=== PATIENT | male | born 1955 | race Caucasian/White ===

== ENCOUNTER 2021-05-02 07:47 | Outpatient (CLI) | payer MEDICARE, SELFPAY ==
[2021-05-02 07:56] VITALS: BMI 30.7
--- NOTE | 2021-05-02 08:11 | ECG_ITS ---
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 The perfusion scan will be documented separately. DATA: Baseline heart rate was 87 beats per minute. Baseline blood pressure was 127/80 millimeters of mercury. Target heart rate was 155. Maximum heart rate achieved was 111. which was 71 % of the predicted target heart rate. Maximum blood pressure was millimeters of mercury. The reason for ending the test was completion of the protocol. The patient did not experience any symptoms. ELECTROCARDIOGRAM: BASELINE: Sinus rhythm. Normal axis. Otherwise, no ST-T changes suggestive of ischemia noted. No arrhythmia noted. EXERCISE: After Lexiscan injection, no ST-T changes suggestive of ischemic noted. No arrhythmia noted. CONCLUSION: Please note due to baseline abnormality of the EKG specificity and sensitivity of the EKG portion of LexiScan MIBI stress test will be low 1. EKG not suggestive of ischemia 2. Lexiscan injection unremarkable. 3. Perfusion scan will be documented separately. Electronically Signed On 05-05-2021 20:53:18 CDT by CHARLENE BLANTON [id number]
--- NOTE | 2021-05-02 08:11 | NMCV_ITS ---
NM miguel angel perf SPECT r/s* [id number] Cheo Flores Age: 66 Gender: M : 1955 Exam Date: 05/02/2021 09:24 Ordering Phys: Paddy Ham NP Technologist: ROSA Collier Exam Location: [facility] Indications: ATYPICAL CHEST PAIN STRESS TEST Please see separate stress test report in [facility] for full findings IMAGE PROTOCOL Rest/Stress 1 Lexiscan Day Radiopharmaceutical Dose (mCi) Administration Site Administered by Rest: Tc-99m 11.0 IV ROSA Andres Sestamibi Stress:Tc-99m 32.4 IV ROSA Andres Sestamibi Rest: 02-May-2021 60 Discovery 630 Stress: 02-May-2021 30 Discovery 630 0.4mg Lexiscan. Images obtained in supine and prone position. SPECT RESULTS Technical Quality: Excellent Raw Data Analysis: Normal Image Corrections: No attenuation or motion correction applied Summed Stress Score: 7 Summed Rest Score: 0 Summed Difference Score: 7 PERFUSION FINDINGS Medium-sized area of moderate reversibility noted in basal to distal anteroseptal suggestive of possible lesion in the LAD. Medium-sized area of moderate reversibility noted in basal to distal inferoseptal wall suggestive of possible lesion in the RCA category. FUNCTIONAL RESULTS (calculated via Gated SPECT) Stress Image LV EF (%): 66 Stress EDV (mL):122 TID: 1.16 Stress ESV (mL):42 Rest Image LV EF (%): 66 FUNCTIONAL FINDINGS: Global hypokinesis IMPRESSIONS Medium-sized area of possible ischemia noted in mid to distal anteroseptal and mid to distal inferoseptal wall suggestive of possible lesion in the LAD and RCA territory.TID ratio is elevated 1.1 which could be secondary to left ventricular hypertrophy/subendocardial ischemia however multivessel coronary artery disease is also a consideration. EKG segment will be documented separately Judson St MD (Electronically Signed) Final Date: 02 May 2021 13:49 S
[2021-05-02] MEDS: regadenoson 0.4 Mg/5 ml Syringe IVP (10:24)
[2021-05-02] MEDS: aminophylline 25 mg/mL SDV 10 mL IVP (10:38)
[2021-05-02 10:49] VITALS: BP 128/80; PULSE 86
== END 2021-05-02 07:48 | disposition home or self-care (01) ==
LOC: CDL 07:51 → RAD 07:56
PROVIDERS: PCP Nurse Practitioner Family; Visit Provider Nurse Practitioner Family
DX: R07.89 Other chest pain (principal); I25.9 Chronic ischemic heart disease, unspecified
CPT/HCPCS: 78452; 93017; A9500; J0280; J2785

== ENCOUNTER 2021-06-20 08:29 | Outpatient (CLI) | payer MEDICARE, SELFPAY ==
--- NOTE | 2021-06-20 08:54 | XRR_ITS ---
PROCEDURE INFORMATION: Exam: XR Thoracic Spine Exam date and time: 06/20/2021 8:54 AM Age: 66 years old Clinical indication: Pain in thoracic spine; Patient HX: History--mid back pain for 1 month. Pain started while working. Fell out of truck 1 month ago. ; Additional info: Thoracic back pain TECHNIQUE: Imaging protocol: XR of the thoracic spine. Views: 2 views. COMPARISON: No relevant prior studies available. FINDINGS: Bones/joints: The vertebral body alignment and stature is intact. No fracture or subluxation. Multilevel degenerative endplate changes with bridging syndesmophytes. Soft tissues: Unremarkable. XR/XR thoracic spine 2V 53592 IMPRESSION: 1. No acute finding.
== END 2021-06-20 08:30 | disposition home or self-care (01) ==
PROVIDERS: PCP Nurse Practitioner Family; Visit Provider Nurse Practitioner Family
DX: M54.6 Pain in thoracic spine (principal)
CPT/HCPCS: 72070

== ENCOUNTER → 2021-06-27 09:38 | Outpatient (BNVA) | payer MEDICARE, SELFPAY | PROVIDERS: PCP Nurse Practitioner Family; Referring Provider Internal Medicine Cardiovascular Disease; Visit Provider Internal Medicine Cardiovascular Disease | DX: Z01.812 Encounter for preprocedural laboratory examination (principal); R94.39 Abnormal result of other cardiovascular function study; Z20.822 Contact with and (suspected) exposure to COVID-19 | CPT/HCPCS: 80053; 82248; 85025; 85610; 87635 ==

== ENCOUNTER 2021-06-30 05:52 | Outpatient (CLI) | payer MEDICARE, SELFPAY ==
[2021-06-30] VITALS (40 sets, daily range): BP systolic 108–151; BP diastolic 63–89; PULSE 55–94; RESP 10–26; TEMP 36.6–37.1; O2SAT 95–100; BMI 28.8
--- NOTE | 2021-06-30 06:00 | XACV_ITS ---
Ht: 180 cm Wt: 94 kg BSA: 2.19 m2 Gender: Male : 1955 Any Known Allergies: No known allergies Exam Priority: Routine Procedure(s): Procedure Description: Diagnostic procedure Procedure Description: PCI procedure Procedure Description: Drug Eluting Coronary Stent Procedure Description: PTCA Procedure Description: Coronary Angiography Diagnostic Cath Status: Elective Diagnostic Findings * Circumflex has mild luminal irregularities. Gives off a large OM branch which is free of significant disease. * Right Coronary Artery has diffuse luminal irregularities. * Indication: Chest pain/abnormal stress test. * Left Main has no disease. * Mid Left Anterior Descending: significant 80% stenosis, TONJA: 3 flow. * Coronary angiography shows right dominance. PCI Status: Elective PCI Indication: Other Interventional Findings * Procedure details: We engaged left main artery with a XB 3.5guide catheter. IV heparin was administered to maintain an ACT above 250 seconds. A 0.014 run-through guidewire was used to cross the stenosis and was placed in distal LAD. 2.5 x 12 mm semicompliant balloon was used to predilate the stenosis. This was followed by placement of 3.0 x 18 mm resolute Byram drug-eluting stent. At this time final angiogram was performed that showed excellent stent expansion, TONJA-3 flow and no residual stenosis. Guidewire and guide catheter were removed. 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 * Mid Left Anterior Descendin% stenosis treated with a AB TREK 2.50X12 RX BALLOON, and SUZETTE Carmichael DRAKE 3.0X18 JOSE F. 0% residual stenosis, TONJA: 3 flow. Conclusions 1. There is significant coronary artery disease with one vessel disease. 2. Mid Left Anterior Descending was treated with a Balloon, and Drug Eluting Stent. Recommendations * Aspirin and Plavix for atleast 1 year. * High intensity statin therapy. * Outpatient cardiology follow up in 4 weeks. Interventional RX Recommendation: PCI w/o planned CABG Diagnostic RX Recommendation: PCI w/o planned CABG Anticoagulation: Heparin Pressures Phase:Rest AO : 120 / 76 ( 98 ) @ 7:00:00 AM 121 / 77 ( 98 ) @ 7:02:00 AM 106 / 61 ( 80 ) @ 7:10:00 AM 141 / 75 ( 106 ) @ 7:17:00 AM 142 / 78 ( 108 ) @ 7:24:00 AM Clinical Evaluation EBL: 5mL-10mL Procedural Details Procedure Consent Obtained. Current Diagnosis : Chest Pain. Pre-Procedure Time Out. Identified patient by full name and date of as verbalized by the patient/guarantor. Does the consent match the physician's order: Yes. Accurate & Complete Informed Consent: Yes. Inpatient/Outpatient History & Physical on Chart: Yes. If H&P is completed, is and addenduem needed: No; If yes, is the addendum complete: N/A. Visualize and Verify Site with Patient/Guarantor: N/A. Relevant Radiology Images available: No. Pre-op teaching completed and patient verbalized understanding. The risks, benefits, and alternatives of sedation and/or procedure were discussed by physician. The patient agrees to continue. Procedure started. [facility] Clinical Fraility Score: 3: Managing Well. Roller Embosser Indications: Suspected CAD. Chest Pain Symptom Assessment: Typical Angina Symptoms. Correct patient, site and procedure confirmed by cath team. Current diagnosis: Chest Pain. PERRLA. 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 Lungs clear x 5 lobes. IV Site on Arrival: 20 gauge in the left anticubital. IV Fluids: 0.9% NaCl at KVO. 0 mL infused prior to laborer orchard. Pre Procedural Pulses: right dorsalis pedis was 2+. Pre Procedural Pulses: left dorsalis pedis was Doppled. Pre Procedural Pulses: bilateral posterior tibial was 3+. Pre Procedural Pulses: bilateral radial was 3+. Oxygen started at 2liters/min via nasal canula. right groin was prepped with chloroprep then draped in the usual sterile fashion. right radial was prepped with chloroprep then draped in the usual sterile fashion. Physician notified. Baseline sample Acquired. HR: 0 BPM. Jonathan Ignacio scrubbing, Stefany Edwards RN circulating. Physician arrived. Physician scrubbed in. Immediate Pre-Procedure Time Out. Correct Patient: Yes; Correct Procedure: Yes; Correct Site: Yes; Correct Patient Position: Yes; Correct Supplies: Yes; Dried Flammable Prep: Yes; Blood Products Available: N/A;. Lidocaine 1% infiltrated to the right radial. Arterial access obtained. A 5 st helenian TIG catheter in over wire. Multiple views taken of left coronary artery. Catheter redirected to the RCA. Multiple views taken of right coronary artery. Catheter removed over the exchange wire. 6 st helenian XB 3 guide catheter was inserted over the wire. Runthrough guidewire was advanced through the guide catheter to lesion in the mid LAD. Inflation number : 1 A AB TREK 2.50X12 RX BALLOON was prepped and advanced across the Mid LAD , then inflated to 12 SOLIS for 0:27 seconds. Inflation number: 2 The AB TREK 2.50X12 RX BALLOON was reinflated across the Mid LAD, to 12 SOLIS for 0:13 seconds. Balloon out. Inflation Number : 3 A SUZETTE Carmichael DRAKE 3.0X18 JOSE F -Lot Number# _[id number] Exp: 04/04/2024 was prepped and advanced across the Mid LAD. The stent was deployed at 12 SOLIS for 0:20 seconds. Stent balloon out over wire. Results checked. ACT drawn. Results 330 seconds. Therapeutic limits - pre-heparin administration 90-150 seconds and monitoring heparin during a vascular procedure >250 seconds. Wire out. Guide catheter out. A TR Band was successful obtaining hemostatsis at the Right Radial artery insertion site. TR band placed. Hemostasis obtained. Post Procedure: Pulses reassessed and unchanged. No VTE prophylaxis required. Medication's Wasted: Lidocaine 1% = 18 mL. Medication's Wasted: Nitro = 49.6 mg. Medication's Wasted: Heparin = 1000 units. Total IV fluids: 50 mL. Contrast type used: Omnipaque 300 mgI/mL, 500 mL bottle. Complications: None. Estimated blood loss: 5mL-10mL. Procedure completed. Patient transferred by wheelchair to 1st floor. Vital chart was stopped. Access Site Site: Right Radial artery Sheath Size: 6 Fr Hemostasis Method: TR Band Hemostasis Success: Successful Procedure Medications Start: 7:54 AM Stop: 7:54 AM Medication: Versed Amount: 1 mg Route: I.V. Start: 7:54 AM Stop: 7:54 AM Medication: Fentanyl Amount: 50 mcg Route: I.V. Start: 7:57 AM Stop: 7:57 AM Medication: Nitrogylcerin Amount: 200 mcg Route: I.A. Start: 8:00 AM Stop: 8:00 AM Medication: Heparin Amount: 5000 units Route: I.V. Start: 8:07 AM Stop: 8:07 AM Medication: Heparin Amount: 5000 units Route: I.V. Start: 8:07 AM Stop: 8:07 AM Medication: Versed Amount: 1 mg Route: I.V. Start: 8:15 AM Stop: 8:15 AM Medication: Aggrastat 12.5 mg/250 mL Amount: 47 ml Route: I.V. bolus Start: 8:16 AM Stop: 8:16 AM Medication: Fentanyl Amount: 50 mcg Route: I.V. Start: 8:18 AM Stop: 8:18 AM Medication: Aggrastat 12.5 mg/250 mL Amount: 16.9 ml/hr Route: I.V. drip Start: 8:23 AM Stop: 8:23 AM Medication: Nitrogylcerin Amount: 200 mcg Route: I.A. Start: 8:32 AM Stop: 8:32 AM Medication: Plavix Amount: 600 mg Route: P.O. Start: 8:32 AM Stop: 8:32 AM Medication: Aspirin Amount: 325 mg Route: P.O. I, the attending physician, have reviewed and verified all procedure medications. Yes, all medications given per verbal order History/Risk Factors Hypertension: Yes Dyslipidemia: No Peripheral Arterial Disease (PAD): No Myocardial Infarction (MT): No Obesity: No Renal Disease: No Tobacco Use: Former Prior Interventions PCI: No CABG: No Valve Surgery: No Report Signatures Finalized by Dustin Mcdaniel MD on 07/14/2021 06:18 PM
[2021-06-30] MEDS: diphenhydrAMINE 50 mg Capsule PO (07:15)
--- NOTE | 2021-06-30 07:42 | W.PM.OPSUD ---
Surgery/Procedure H&P Update DATE OF PROCEDURE: June 30, 2021 DATE H&P PERFORMED: 05/30/21 H&P UPDATE INFORMATION: I have reviewed H&P completed within last 30 days, I have examined patient prior to procedure and No changes to prior documentation PREOP DIAGNOSIS: Chest pain/abnormal stress test PRIMARY INDICATION FOR PROCEDURE: Chest pain/abnormal stress test PLANNED PROCEDURE: Operation Date: 06/30/21 07:00 Proposed Procedures p Cardiac Catheterization(Left) - Dustin Mcdaniel M.D Possible percutaneous coronary intervention PATIENT REASSESSED PRIOR TO SEDATION, WITH NO CHANGE NOTED: Yes PHYSICAL EXAM: alert, oriented x 3, clear to auscultation bilaterally and regular rate & rhythm AIRWAY EVAL/ANESTHESIA PLAN: ASA III, Monitored Anesthesia, Local Anesthesia, Risks, benefits & alternatives of sedation and/or procedure discussed and Patient agrees to continue as planned
--- NOTE | 2021-06-30 11:15 | PC.CHAP ---
Pastoral Care Encounter/Spiritual Assessment Type of Contact [] Declined neurology physician assistant visit [] Patient/Family/Request visit [] Outpatient visit [] Follow-up visit [] Physician referral [] Code/Alert [x] Routine visit [] Staff referral [] Actively dying [] Patient sleeping [] Family support [] [] Out of room [] Palliative care [] [x] Receiving care in room [] Pre-surgical visit [] Trauma [] Long length of stay [] ICU visit [] Other: Relational/Emotional Strength [x] Patient feels connected with others/family/visitors/staff [] Distress [] Loneliness/isolation [] Abandonment Spirituality of Patient [x] Person of Manuela [] Attends Hinduism of their Manuela [x] Believes in Prayer [] Reads Bible or Pentecostal materials [] There are Spiritual issues to be addressed Social Welfare Research Worker Interventions [x] Prayer [x] Active listening [x] Non-anxious presence [x] Spiritual/emotional support [] Crisis/trauma care [x] Spiritual counseling [] Bereavement support [] Provided bereavement packet [] Provided Bible/devotional materials [] Provided toy/stuffed animal, coloring book to patient or family member [] Provided Communion [] Anointing/[place] [] Salvation [] Completed spiritual assessment [] Other: Impact on Illness or Injury [] Angry [] Fearful [] Anxious [] Often cries [] Exhaustion [] Unable to work [] Unable to attend mormonism [] Unable to walk/stand [] Unable to read [] Unable to drive [] Unable to eat/drink [] Unable to sleep [] Unable to be with family [] Patient intubated [] Other: Summary had a stent and will need some time for recovery feels good and has a good attitude and is gong home Time spent with patient 10 mins
--- NOTE | 2021-06-30 12:26 | PC.NURSE ---
Aggrastat Drip stopped Hand-off report telephone order from laborer cement gun placing nurse VICKY Mccall to stopped the drip post pci at 12:25pm. Drip stopped at this time as ordered.
--- NOTE | 2021-06-30 20:19 | PC.NURSE ---
Received report from VICKY Perez. Patient resting in bed. S/p LHC with right radial access. Dressing in place to right wrist remain c,d,i with no s/s of bleeding or hematoma formation observed. Discussed sliding scale insulin with patient and he verbalized complete understanding. Patient up ad rufina to bathroom. Tolerated well. Denies pain or other needs presently. No distress observed. Will continue to monitor.
[2021-06-30 20:20] LABS: Glucose Point of Care 135 mg/dL (70-110)
[2021-07-01 03:23] VITALS: BP 150/83; PULSE 84; RESP 20; O2SAT 93
[2021-07-01 03:32] LABS: Basophils % 0.5 %; Eosinophils # 0.1 10^3/uL (0.0-0.8); Eosinophils % 3.2 %; Hematocrit 35.9 % (42.0-52.0); Hemoglobin 11.4 g/dL (11.7-16.6); Lymphocytes % 23.3 %; Mean Corpuscular HGB Conc 31.8 g/dL (30.0-36.0); Mean Corpuscular Hemoglobin 29.2 pg (28.0-34.0); Mean Corpuscular Volume 92.1 fl (80-94); Mean Platelet Volume 11.3 fL (7.4-10.4); Monocytes # 0.4 10^3/uL (0.2-0.9); Neutrophils # 2.62 10^3/uL (1.8-7.7); Neutrophils % 63.5 %; Nucleated Red Blood Cells % 0 %; Platelet Count 144 10^3/cmm (130-400); Red Cell Distribution Width 13.5 % (12.1-15.1); White Blood Count 4.1 10^3/uL (4.0-10.0)
[2021-07-01 03:56] LABS: Anion Gap 10.7 (5-19); Blood Urea Nitrogen 15 mg/dL (8-23); Carbon Dioxide 24 mmol/L (22-29); Chloride 108 mmol/L (98-107); Glucose 117 mg/dL (65-115); Osmolality Calculated 288 mOsm/kg (285-295); Potassium 4.7 mmol/L (3.5-5.1); Sodium 138 mmol/L (136-145)
[2021-07-01 04:43] VITALS: PULSE 69
--- NOTE | 2021-07-01 05:48 | PC.NURSE ---
Shift Note Frequent safety and comfort rounds continue. Orders and/or nursing care completed as indicated. Patient monitored for response to intervention and treatment(s). Education provided includes post cath site care. Patient verbalized complete understanding. Patient denies pain or needs. Dressing to right wrist remains c,d,i with no s/s of bleeding or hematoma formation observed. Uneventful evening. Slept well per patient. Denies pain or needs. No distress observed. Will continue to monitor.
[2021-07-01 06:24] LABS: Glucose Point of Care 112 mg/dL (70-110)
--- NOTE | 2021-07-01 07:14 | P.SS_ITS ---
Short Stay Summary Providers Date of Admit/Discharge: 06/30/21 Attending Provider: Dustin Mcdaniel M.D Primary Care Provider: Paddy Ham NP Chief Complaint: [id number] HPI History of Present Illness 66 yo man with PMHx of DM-2 for last 3-4 years and HTN. Paatient was having chest pain and had abnormal stress test. Here for left heart cath Review of Systems Const: Denies: fever(s), chills, change in weight, fatigue or diaphoresis Eyes: Denies: change in vision or eye redness ENMT: Denies: throat pain, odynophagia, mouth pain or epistaxis Card: Denies: chest pain, palpitations, irregular heart rhythm, edema, syncope, pre-syncope, dyspnea on exertion, orthopnea or leg pain with exertion Resp: Denies: dyspnea, productive cough or wheezing GI: Denies: nausea, vomiting, hematemesis, hematochezia or melena : Denies: hematuria Musc: Denies: extremity swelling or joint pain Skin/Breast: Denies: rash, pruritus, erythema or new lesions Neuro: Denies: numbness in extremities, weakness in extremities, sensory changes, frequent falls, dizziness, Slurred speech present or difficulty communicating thoughts Psych: Denies: anxiety, depression, irritability, suicidal ideation or homicidal ideation Endo: Denies: polyuria, polydipsia or excessive sweating Benson/Lymph: Reports: easy bruising and easy bleeding Home Meds/Allergies Home Medications and Allergies Home Medications Medication Instructions Recorded Confirmed Type amlodipine 2.5 mg tablet 2.5 mg PO DAILY 05/30/21 07/11/21 History glipizide 5 mg tablet, extended 10 mg PO DAILY tab 05/30/21 07/11/21 History release 24 hr lisinopril 20 mg tablet 20 mg PO DAILY 05/30/21 07/11/21 History metformin 1,000 mg tablet 1,000 mg PO BID 05/30/21 07/11/21 History pantoprazole 40 mg tablet,delayed 40 mg PO DAILY 05/30/21 07/11/21 History release Allergies Allergy/AdvReac Type Severity Reaction Status Date / Time No Known Allergies Allergy Verified 07/11/21 15:53 PFSH Acute PFSH: Medical History Abnormal nuclear stress test Coronary artery disease Diabetes mellitus GERD (gastroesophageal reflux disease) HTN (hypertension) Surgical History Presence of stent in LAD coronary artery Family History Father Stroke Mother Stroke Vitals/I&O/Wt Last Vital Signs Temp 98.2 F 06/30/21 12:45 Pulse 69 07/01/21 04:43 Resp 20 H 07/01/21 03:23 BP 150/83 07/01/21 03:23 Pulse Ox 93 07/01/21 03:23 06/30/21 07/01/21 07/01/21 22:59 06:59 14:59 Intake Total 560 / 1142 240 / 1382 Output Total 350 / 1100 Balance 560 / 392 -110 / 282 Weight last 48 hrs Weight 207 lb Physical Exam Const: COMMON NORMALS: no acute distress and patient oriented x3 HENMT: COMMON NORMALS: normocephalic HEAD & SCALP: normocephalic Eye: COMMON NORMALS: Equal, round and reactive pupils present PUPIL: Yes Equal, round and reactive pupils present Neck/C-Spine: COMMON NORMALS: full ROM Resp: COMMON NORMALS: normal respiratory effort and clear to auscultation bilaterally AUSCULTATION: clear to auscultation bilaterally Cardio: COMMON NORMALS: regular rate, regular rhythm, S1 normal heart sound present and S2 normal heart sound present RATE: regular rate RHYTHM: regular rhythm HEART SOUNDS: S1 normal heart sound present and S2 normal heart sound present Extremity: COMMON NORMALS: normal to inspection Neuro: COMMON NORMALS: patient oriented x3 Hospital Course Hospital Course 66 yo man with PMHx of DM-2 for last 3-4 years and HTN. Paatient was having chest pain and had abnormal stress test.Came for left heart cath and found to have severe stenosis of the mid LAD. He underwent successful revascularization with JOSE F x 1. He started overnight in hospital and had no complications. 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 for service Routin e Exams 06/30/21 06:00 Ordered Discharge Plan Discharge Patient Disposition: Home Prescriptions: New clopidogrel 75 mg Tablet 75 mg PO DAILY 90 Days RF: 3 Continued pantoprazole [Protonix] 40 mg tablet,delayed release (DR/EC) 40 mg PO DAILY RF: 0 amlodipine 2.5 mg tablet 2.5 mg PO DAILY RF: 0 lisinopril 20 mg tablet 20 mg PO DAILY RF: 0 glipizide 5 mg tablet extended release 24hr 10 mg PO DAILY RF: 0 aspirin 81 mg tablet,chewable 81 mg PO DAILY Qty: 30 RF: 6 nitroglycerin 0.4 mg tablet, sublingual 0.4 mg sublingual Q5M PRN (Reason: chest pain) Qty: 30 RF: 6 Changed atorvastatin 20 mg tablet 40 mg PO DAILY Qty: 30 RF: 3 Held metformin 1,000 mg tablet 1,000 mg PO BID RF: 0 Hold Instructions: Resume on 07/03/21. Discharge Orders: Discharge Order (Routine); Ordered 07/01/21 Ordered By: Dustin Mcdaniel Referrals: Kelly Doyle FNP [Nurse Practitioner] - 7-10 days (You have a follow up appointment with Kelly LEMUS on July 11 2021 at 9:00 AM If you can not keep this appoinment please call to reschedual.) Betsy Gaston MD [Physician] - 1 month (You have a follow up appointment with Dr. Gaston on July 29 2021 at 9:30 AM If you can not keep this appoinment please call to reschedual.) Diet: Diabetic Activity: Increase activity as tolerated Patient Instructions: Clopidogrel (By mouth), Coronary Angioplasty (DC), Post Angiogram Home Care Instructions Activity Restrictions/Additional Instructions: Please do not lift more than 5 pounds of weight for the next 5 days Discharge Date/Time: 07/01/21 10:01 Attestations Medical Necessity Statement*: Care not expected to cross 2 midnights. Time Spent in Patient Care*: less than 30 min Quality Metrics Clinical Quality Measures: During this hospital stay, did patient experience: None Coding Level of Care Code Acute Director Medical Economics for Eric Obregon
[2021-07-01 07:38] VITALS: BP 152/90; PULSE 85; RESP 18; TEMP 36.8; O2SAT 100
[2021-07-01] MEDS: clopidogrel 75 mg Tablet PO (08:27)
[2021-07-01] MEDS: amlodipine 5 mg Tablet 2.5 MG PO (08:27)
[2021-07-01] MEDS: lisinopril 20 mg Tablet PO (08:27)
[2021-07-01] MEDS: aspirin 81 mg Chew Tablet PO (08:27)
[2021-07-01] MEDS: pantoprazole DR 40 mg Tablet PO (08:27)
[2021-07-01] MEDS: atorvastatin 40 mg Tablet PO (08:27)
== END 2021-07-01 10:01 | disposition home or self-care (01) ==
LOC: CCL 06:00 → CSU 07-01 07:17
PROVIDERS: PCP Nurse Practitioner Family; Visit Provider Internal Medicine
DX: I25.10 Atherosclerotic heart disease of native coronary artery without angina pectoris (principal); R07.9 Chest pain, unspecified; R94.39 Abnormal result of other cardiovascular function study; E11.9 Type 2 diabetes mellitus without complications; I10 Essential (primary) hypertension; Z79.84 Long term (current) use of oral hypoglycemic drugs; K21.9 Gastro-esophageal reflux disease without esophagitis; Z95.5 Presence of coronary angioplasty implant and graft; Z82.3 Family history of stroke; Z87.891 Personal history of nicotine dependence
CPT/HCPCS: 36415; 36416; 80048; 82962; 85025; 85347; 93454; C1725; C1769; C1874; C1887; C1894; C9600; J0153; J1644; J2250; J3010; J3246; J3490; J7030; Q0163; Q9967

== ENCOUNTER → 2021-07-11 16:48 | Outpatient (BNVA) | payer MEDICARE, SELFPAY | PROVIDERS: PCP Nurse Practitioner Family; Visit Provider Nurse Practitioner Family | DX: I25.10 Atherosclerotic heart disease of native coronary artery without angina pectoris (principal); Z09 Encounter for follow-up examination after completed treatment for conditions other than malignant neoplasm | CPT/HCPCS: 80048 ==

== ENCOUNTER 2021-08-10 08:30 | Outpatient (CLI) | payer MEDICARE, SELFPAY ==
--- NOTE | 2021-08-10 08:36 | US_ITS ---
WS: [id number] THYROID ULTRASOUND HISTORY: ABNORMAL THYROID STIMULATING HORMONE COMPARISON: None available. Right lobe: 2.2 cm x 2.1 cm x 6.4 cm (w x ap x l). Volume: 15.1 cm3. Moderately enlarged thyroid gland. Hypoechoic nodule measuring 8 x 7 x 7 mm in the mid thyroid. No as sociated calcification. Overall coarse echotexture. Left lobe: 2.2 cm x 2.0 cm x 6.9 cm (w x ap x l). Volume: 16.0 cm3. Moderately enlarged thyroid gland. Hypoechoic nodule in the mid gland measures 1.0 x 1.0 x 0.9 cm. No increased vascularity. There is a larger nodule in the inferior pole which is nearly isoechoic to th e gland measuring 2.6 x 1.4 x 1.8 cm. Isthmus: 0.7 cm. Hypoechoic nodule in the RIGHT isthmus measures 1.0 x 1.1 x 0.6 cm. US/US thyroid [id number] IMPRESSION: 1. Multinodular enlarged thyroid. Recommend yearly ultrasound surveillance. No dules do not fit criteria for biopsy at this time. If these nodules continue to increase in size biopsy may be necessary. 2. No adenopathy.
== END 2021-08-10 08:31 | disposition home or self-care (01) ==
LOC: RAD 08:33
PROVIDERS: PCP Nurse Practitioner Family; Visit Provider Nurse Practitioner Family
DX: R94.6 Abnormal results of thyroid function studies (principal); E04.9 Nontoxic goiter, unspecified
CPT/HCPCS: 76536

== ENCOUNTER 2021-09-07 12:00 | Outpatient (CLI) | payer MEDICARE, SELFPAY | END 2021-09-07 12:01 | disposition home or self-care (01) | LOC: SLEEP 09-09 09:29 | PROVIDERS: PCP Nurse Practitioner Family; Visit Provider Nurse Practitioner Family | DX: R40.0 Somnolence (principal); G47.33 Obstructive sleep apnea (adult) (pediatric); R06.83 Snoring; R53.83 Other fatigue | CPT/HCPCS: G0399 ==

== ENCOUNTER → 2022-02-24 08:59 | Outpatient (BNVA) | payer MEDICARE, SELFPAY | PROVIDERS: PCP Nurse Practitioner Family; Visit Provider Internal Medicine Cardiovascular Disease | DX: I25.10 Atherosclerotic heart disease of native coronary artery without angina pectoris (principal); I10 Essential (primary) hypertension; E11.9 Type 2 diabetes mellitus without complications; K21.9 Gastro-esophageal reflux disease without esophagitis; G47.33 Obstructive sleep apnea (adult) (pediatric); Z99.89 Dependence on other enabling machines and devices; Z87.891 Personal history of nicotine dependence; Z79.84 Long term (current) use of oral hypoglycemic drugs | CPT/HCPCS: 99214 ==

== ENCOUNTER → 2022-08-28 11:10 | Outpatient (BNVA) | payer MEDICARE, SELFPAY | PROVIDERS: PCP Family Medicine; Visit Provider Internal Medicine Cardiovascular Disease | DX: I25.10 Atherosclerotic heart disease of native coronary artery without angina pectoris (principal); I10 Essential (primary) hypertension; Z87.891 Personal history of nicotine dependence | CPT/HCPCS: 99214 ==

== ENCOUNTER 2024-03-21 06:21 | Outpatient (CLI) | payer MEDICARE, SELFPAY ==
--- NOTE | 2024-03-21 06:40 | USCV_ITS ---
Cheo Flores Age: 69 Gender: M : 1955 Exam Date: 03/21/2024 06:50 Ordering Phys: Kwaku Montero MD Technologist: Haseeb Butterfield Exam Location: [facility] [place] Indication: aortic stenosis BP: 142 / 74 HR: 100 Rhythm: Sinus Technical Quality: Suboptimal MEASUREMENTS (Male / Female) Normal Values 2D ECHO LV Diastolic Diameter PLAX 4.2 cm 4.2 - 5.9 / 3.9 - 5.3 cm IVS Diastolic Thickness 1.1 cm 0.6 - 1.0 / 0.6 - 0.9 cm IVS Systolic Thickness 1.6 cm LVPW Diastolic Thickness 1.3 cm 0.6 - 1.0 / 0.6 - 0.9 cm LVPW Systolic Thickness 1.8 cm LVOT Diameter 2.0 cm LV Ejection Fraction 2D Teich 63.6 % LV Ejection Fraction MOD 2C 56.0 % LV Ejection Fraction 2C AL 57.0 % LA Diameter 3.6 cm RA Systolic Volume 4C AL 30.8 ml RA Systolic Volume 4C MOD 31.5 ml LA Sys Volume AL 39.9 cm cubed LA Sys Volume Index AL 17.4 cm cubed/m squared Aorta at Sinotubular Diameter 2.5 cm M-MODE LA Ao Ratio MM 1.2 MV E Point Septal Separation 1.3 cm AV Cusp Separation MM 1.9 cm DOPPLER AV Peak Velocity 139.0 cm/s AV Area Cont Eq vti 2.5 cm squared AV Area Cont Eq pk 2.6 cm squared MV Peak Velocity 129.0 cm/s MV Area PHT 9.3 cm squared Mitral E to A Ratio 0.7 TR Peak Velocity 145.0 cm/s TR Peak Gradient 8.4 mmHg TR Mean Velocity 105.0 cm/s TR Mean Gradient 5.0 mmHg TR Velocity Time Integral 35.4 cm PV Peak Velocity 98.0 cm/s RV Ejection Time 0.2 s FINDINGS Left Ventricle Normal left ventricular size, systolic function and wall thickness, with no regional wall motion abnormalities. Grade I/IV diastolic dysfunction (abnormal relaxation filling pattern), normal to mildly elevated filling pressures. Left ventricular ejection fraction is estimated at 55 %. Right Ventricle Normal right ventricular size and systolic function. Right Atrium The right atrium is normal in size. Left Atrium The left atrium is normal in size. Mitral Valve Structurally normal mitral valve without significant stenosis or prolapse. There is no mitral regurgitation. Aortic Valve Structurally normal aortic valve without significant sclerosis or stenosis. There is no aortic regurgitation. Tricuspid Valve Structurally normal tricuspid valve without significant stenosis or regurgitation. Pulmonary artery systolic pressure is normal. Pulmonic Valve Pulmonic valve not well visualized. Pericardium Normal pericardium without effusion. Aorta Normal ascending aorta dimension. IVC Inferior vena cava not visualized. CONCLUSIONS Normal left ventricular size, systolic function and wall thickness, with no regional wall motion abnormalities. Grade I/IV diastolic dysfunction (abnormal relaxation filling pattern), normal to mildly elevated filling pressures. Left ventricular ejection fraction is estimated at 55 %. There are no prior echocardiogram studies to compare. Dr. Palmer Britt MD (Electronically Signed) Final Date: 22 March 2024 11:40 S
== END 2024-03-21 06:22 | disposition home or self-care (01) ==
PROVIDERS: PCP Family Medicine; Visit Provider Family Medicine
DX: I50.30 Unspecified diastolic (congestive) heart failure (principal)
CPT/HCPCS: 93306

== ENCOUNTER 2024-09-28 05:51 | Observation (INO) | payer MEDICARE, MEDICAID, SELFPAY ==
[2024-09-28] VITALS (9 sets, daily range): BP systolic 130–158; BP diastolic 71–94; PULSE 71–91; RESP 16–18; TEMP 36.3–37; O2SAT 95–99; BMI 32.1
--- NOTE | 2024-09-28 05:53 | XRR_ITS ---
PROCEDURE INFORMATION: Exam: XR Chest Exam date and time: 09/28/2024 5:58 AM Age: 69 years old Clinical indication: Chest pressure; Patient HX: C/O chest pain TECHNIQUE: Imaging protocol: Radiologic exam of the chest. Views: 1 view. COMPARISON: CR XR chest 2V* [id number] 03/21/2024 7:55 AM FINDINGS: Lungs: Unremarkable. No consolidation. Pleural spaces: Unremarkable. No pleural effusion. No pneumothorax. Heart/Mediastinum: Unremarkable. No cardiomegaly. Diaphragm: Relative elevation of the right hemidiaphragm. Bones/joints: Unremarkable. XR/XR chest 1V portable [id number] IMPRESSION: No acute cardiopulmonary disease.
[2024-09-28 06:15] LABS: Basophils % 0.5 %; Eosinophils # 0.2 10^3/uL (0.0-0.8); Eosinophils % 3.3 %; Hematocrit 41.6 % (37-53); Lymphocytes % 17.3 %; Mean Corpuscular HGB Conc 33.4 g/dL (30-55); Mean Corpuscular Hemoglobin 29.4 pg (27-33); Mean Corpuscular Volume 88.1 fl (82-101); Mean Platelet Volume 10.9 fL (7.4-10.4); Monocytes # 0.4 10^3/uL (0.2-0.9); Monocytes % 7.7 %; Neutrophils # 4.06 10^3/uL (1.8-7.7); Neutrophils % 70.9 %; Nucleated Red Blood Cells % 0 %; Platelet Count 162 10^3/cmm (157-399); Red Blood Count 4.72 10^6/uL (3.85-5.65); Red Cell Distribution Width 12.9 % (12.1-15.1); White Blood Count 5.73 10^3/uL (3.29-11.43)
[2024-09-28 06:32] LABS: Troponin(5th) Baseline 11 ng/L (0-15)
[2024-09-28 06:35] LABS: Alanine Aminotransferase 23 U/L (0-41); Albumin Level 4.1 g/dL (3.5-5.2); Alkaline Phosphatase 145 U/L (40-130); Anion Gap 16.4 (5-19); Aspartate Amino Transferase 11 U/L (0-40); Blood Urea Nitrogen 15 mg/dL (8-23); Calcium 9.2 mg/dL (8.5-10.5); Carbon Dioxide 23 mmol/L (22-29); Chloride 102 mmol/L (98-107); Creatinine Clr Calc Pharmacy 96.5671; Globulin 2.8 g/dL (1.3-4.6); Glomerular Filtration Rate 83.9 mL/min (90-130); Glucose 318 mg/dL (65-115); Osmolality Calculated 297 mOsm/kg (285-295); Potassium 4.4 mmol/L (3.5-5.1); Sodium 137 mmol/L (136-145); Total Bilirubin 0.6 mg/dL (0.15-1.2); Total Protein 6.9 g/dL (6.6-8.7)
--- NOTE | 2024-09-28 07:53 | ECG_ITS ---
[facility] Test Date: 2024-09-28 Pat Name: [facility] Department: Room: Gender: Male Hospital Fellow: : 1955 Requested By: Benito Gallo Order Number: [id number] Ashwin MD: Dustin Mcdaniel M.D. Measurements Intervals [place] Rate: 72 P: 46 FL: 188 QRS: 37 QRSD: 85 T: 42 QT: 362 QTc: 397 Interpretive Statements SINUS RHYTHM Compared to ECG 09/28/2024 05:59:39 No significant changes Electronically Signed On 09-28-2024 20:12:00 RECYCLING DIRECTOR by Dustin Mcdaniel M.D. [id number]
--- NOTE | 2024-09-28 07:55 | ED_ITS ---
HPI - Chest Pain 2 General: Chief Complaint: Chest Pain Stated Complaint: CP Time Seen by Provider: 09/28/24 06:12 History of Present Illness: 69-year-old male presents emergency depa rtment reporting that he went to bed in his usual state of health but woke up around 3 AM with 7 out of 10 chest pressure. It felt similar to when he had heart issues in the past. Patient has history of coronary artery disease with stents to the LAD and JOSE F in June 2022. Patient reports at times he had sharp pains along with the pressure. He felt a little nauseated. No radiation, dyspnea, lightheadedness, palpitations, hemoptysis, swelling. Pain lasted approximately 1 hour. EMS arrived and gave him some aspirin. He has not yet taken his daily medications including blood pressure medication, cholesterol medication, or diabetes medications. He currently reports he is asymptomatic. Patient states that he does not frequently have chest discomfort, this is the first time he is had it in over a year. He does not recall any provocative testing in the last 2 years. Associated symptoms: Deny abdominal pain, dyspnea, fever(s), syncope or vomiting Related Data Home Medications Medication Instructions Recorded Confirmed metformin 1,000 mg tablet 1,000 mg PO BID 05/30/21 09/28/24 atorvastatin 40 mg tablet 40 mg PO DAILY 09/28/24 09/28/24 glipizide 10 mg tablet 10 mg PO DAILY 09/28/24 09/28/24 Previous Rx's Medication Instructions Recorded aspirin 81 mg chewable tablet 81 mg PO DAILY #30 tabs 05/30/21 clopidogrel 75 mg tablet 75 mg PO DAILY #90 tabs 08/01/22 amlodipine 5 mg tablet 5 mg PO DAILY #90 tabs 10/05/22 nitroglycerin 0.4 mg sublingual 0.4 mg sublingual Q5M PRN chest 03/07/23 tablet pain #25 tabs Allergies Allergy/AdvReac Type Severity Reaction Status Date / Time No Known Allergies Allergy Verified 02/24/22 09:05 Review of Systems 2 General: Reports: 10 or more systems reviewed and unremarkable except in HPI and below Const: Denies: fever(s), chills or body aches Eyes: Denies: change in vision ENMT: Denies: throat pain Card: Denies: edema or syncope Resp: Denies: dyspnea or productive cough GI: Denies: abdominal pain, vomiting or diarrhea : Denies: flank pain, dysuria or urinary frequency Musc: Denies: neck pain, back pain, extremity pain or extremity swelling Skin/Breast: Denies: rash or erythema Neuro: Denies: headache(s), numbness in extremities, weakness in extremities, lack of coordination or difficulty walking PFSH ED 2 PFSH: Medical History Coronary artery disease Diabetes mellitus GERD (gastroesophageal reflux disease) HTN (hypertension) JUDIT (obstructive sleep apnea) Surgical History Presence of stent in LAD coronary artery Family History Father Stroke Mother Stroke Social History Smoking and tobacco/nicotine status: former use of tobacco/nicotine Quit status (tobacco/nicotine): has quit using Year quit tobacco: 1989 Former quit date comment: cigars occ Alcohol intake: former Substance/Drug Use: never Physical Exam 2 Const: COMMON NORMALS: no limitations, alert and well nourished EXAM LIMITATIONS: no altered mental status HENMT: COMMON NORMALS: normocephalic, atraumatic and external ears normal H EAD & SCALP: normocephalic and atraumatic EXTERNAL EAR: Yes external ears normal MOUTH: no muffled voice Eye: COMMON NORMALS: conjunctivae normal and no scleral icterus C ONJUNCTIVA: Yes conjunctivae normal Neck/C-Spine: COMMON NORMALS: no JVD GENERAL: Yes normal visual inspection and Yes trachea midline Resp: COMMON NORMALS: normal respiratory effort, No use of accessory muscles and clear to auscultation bilaterally AUSCULTATION: clear to auscultation bilaterally Cardio: COMMON NORMALS: no JVD, regular rate and regular rhythm RATE: r egular rate RHYTHM: regular rhythm GI: COMMON NORMALS: Soft to palpation and non-tender PALPATION: Yes Soft to palpation and No Guarding due to palpation present (GI) Extremity: COMMON NORMALS: normal to inspection Neuro: COMMON NORMALS: moves all extremities, no focal motor deficits and no sensory deficits noted SENSORIUM/ORIENTATION: Yes alert SPEECH: speech normal Psych: COMMON NORMALS: mental status grossly normal, Normal thought process present, cooperative, normal affect and speech normal SPEECH: Yes normal speech THOUGHT PROCESS: Normal thought process present Skin: COMMON NORMALS: no rashes or lesions noted, turgor normal and no jaundice GENERAL SKIN EXAM: no rashes or lesions noted and turgor normal Course 2 Vital Signs: Vital signs: Vital Signs Temperature 97.3 F L 09/28/24 05:53 Pulse Rate 71 09/28/24 07:40 Respiratory Rate 18 09/28/24 05:53 Blood Pressure 155/82 09/28/24 07:40 Pulse Oximetry 99 09/28/24 07:40 Oxygen Delivery Me thod Room Air 09/28/24 07:40 MDM - Chest Pain Medical Decision Making EKG on arrival at 5:59 AM shows a sinus rhythm, normal axis, QRS duration of 86 ms, no concerning ST segment elevations or depressions. EKG #2 at 7:53 AM shows sinus rhythm, rate 72, normal axis, normal intervals, slightly prominent T waves but does not have the classic appearance of hyperacute T waves.; No concerning ST segment elevations or depressions. Differential diagnosis includes unstable angina, GERD, arrhythmia, pulmonary hypertension, sleep apnea, hypoxia, musculoskeletal etiology, other. Initial troponin is 11. Delta troponin is pending. Patient's heart score is a 6. His risk of Mace in the next 6 weeks is 12 to 16.6%. Discussed with patient and he has willing to be admitted to the hospital. Patient had aspirin prior to arrival. I will go ahead and give him his amlodipine (I had originally ordered 10 mg but changed it to 5 mg. I discussed with the nursing staff to split the 10 mg tab in half. Patient only received 5 mg.) Chest x-ray 1 view. EP interpretation. Chronic mild elevation of the right hemidiaphragm. Poor inspiration. No signs of pneumonia, pneumothorax, effusions, widened mediastinum. Patient's blood glucose 318. He has not taken any of his diabetes medications. Discussed with hospitalist and they are can use sliding scale insulin. Lab Data 09/28/24 06:09 09/28/24 06:09 Laboratory Results WBC 5.73 10^3/uL (3.29-11.43) 09/28/24 06:09 RBC 4.72 10^6/uL (3.85-5.65) 09/28/24 06:09 Hgb 13.90 g/dL (11.27-16.99) 09/28/24 06:09 Hct 41.6 % (37-53) 09/28/24 06:09 MCV 88.1 fl (82-101) 09/28/24 06:09 MCH 29.4 pg (27-33) 09/28/24 06:09 MCHC 33.4 g/dL (30-55) 09/28/24 06:09 RDW 12.9 % (12.1-15.1) 09/28/24 06:09 Plt Count 162 10^3/cmm (157-399) 09/28/24 06:09 MPV 10.9 fL (7.4-10.4) H 09/28/24 06:09 Neut % (Auto) 70.9 % 09/28/24 06:09 Lymph % (Auto) 17.3 % 09/28/24 06:09 [place] % (Auto) 7.7 % 09/28/24 06:09 Eos % (Auto) 3.3 % 09/28/24 06:09 Baso % (Auto) 0.5 % 09/28/24 06:09 Neut # (Auto) 4.06 10^3/uL (1.8-7.7) 09/28/24 06:09 Lymph # (Auto) 1.0 10^3/uL (0.8-4.8) 09/28/24 06:09 [place] # (Auto) 0.4 10^3/uL (0.2-0.9) 09/28/24 06:09 Eos # (Auto) 0.2 10^3/uL (0.0-0.8) 09/28/24 06:09 Baso # (Auto) 0.0 10^3/uL (0.0-0.1) 09/28/24 06:09 Nucleated RBC % (auto) 0 % 09/28/24 06:09 Nucleated RBCs # 0.0 /100WBC 09/28/24 06:09 Sodium 137 mmol/L (136-145) 09/28/24 06:09 Potassium 4.4 mmol/L (3.5-5.1) 09/28/24 06:09 Chloride 102 mmol/L (98-107) 09/28/24 06:09 Carbon Dioxide 23 mmol/L (22-29) 09/28/24 06:09 Anion Gap 16.4 (5-19) 09/28/24 06:09 BUN 15 mg/dL (8-23) 09/28/24 06:09 Creatinine 0.9 mg/dL (0.7-1.2) 09/28/24 06:09 GFR Calculation 83.9 mL/min (90-130) L 09/28/24 06:09 Glucose 318 mg/dL (65-115) H 09/28/24 06:09 Calculated Osmolality 297 mOsm/kg (285-295) H 09/28/24 06:09 Calcium 9.2 mg/dL (8.5-10.5) 09/28/24 06:09 Total Bilirubin 0.6 mg/dL (0.15-1.2) 09/28/24 06:09 AST 11 U/L (0-40) 09/28/24 06:09 ALT 23 U/L (0-41) 09/28/24 06:09 Alkaline Phosphatase 145 U/L (40-130) H 09/28/24 06:09 Troponin T Baseline 11 ng/L (0-15) 09/28/24 06:09 Total Protein 6.9 g/dL (6.6-8.7) 09/28/24 06:09 Albumin 4.1 g/dL (3.5-5.2) 09/28/24 06:09 Globulin 2.8 g/dL (1.3-4.6) 09/28/24 06:09 XR interpretation done by ED provider, pending radiology final review Discharge Plan Discharge Patient Disposition: Placed in Observation Clinical Impression: Chest pain with moderate risk for cardiac etiology, Coronary artery disease, JUDIT (obstructive sleep apnea), Diabetes mellitus Coding Level of Care Code ED Epoxy Fabrication Supervisor for Eric Obregon
[2024-09-28] MEDS: aspirin 81 mg EC Tablet PO (08:13)
[2024-09-28] MEDS: amlodipine 10 mg Tablet PO (08:13)
--- NOTE | 2024-09-28 08:13 | PC.NURSE ---
PT RECEIVED 5MG AMLODIPINE PER BAALMAN INSTEAD OF 10MG.
[2024-09-28 08:27] LABS: Troponin 5 2HR 12.79 ng/L (0-15); Troponin 5 2HR Delta 1.79 ABS# (0-10)
--- NOTE | 2024-09-28 11:53 | ECG_ITS ---
[facility] Test Date: 2024-09-28 Pat Name: [facility] Department: Room: Gender: Male Escrow Officer: : 1955 Requested By: Benito Gallo Order Number: [id number] Ashwin MD: Dustin Mcdaniel M.D. Measurements Intervals [place] Rate: 91 P: 32 [place]: 184 QRS: 19 QRSD: 86 T: 32 QT: 339 QTc: 419 Interpretive Statements SINUS RHYTHM No previous ECG available for comparison Electronically Signed On 09-28-2024 20:12:10 AUTOMATIC TYPEWRITER INSPECTOR by Dustin Mcdaniel M.D. [id number]
--- NOTE | 2024-09-28 12:26 | ECG_ITS ---
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 Interpretive Statements LEXISCAN: Procedure: At the baseline, the blood pressure was 123/72 mmHg with a heart rate of 81 bpm. The electrocardiogram showed normal sinus rhythm, normal axis with normal ST and T's. The Lexiscan was infused over a period of 20 seconds. A total of 0.4 mg of Lexiscan was infused. The stress phase was continued for a total of 5 minutes. Heart rate was at the end of stress phase was 107 bpm and a blood pressure of 127/73 mmHg. The EKG at the peak infusion revealed normal sinus rhythm with no significant ST-T wave changes. Sestamibi was injected 20 seconds after the Lexiscan infusion. Blood pressure at the end of recovery phase was 110/69 mmHg with a heart rate of 103 bpm. Conclusion: 1. Normal EKG response to Lexiscan infusion 2. No Lexiscan induced chest pain or cardiac arrhythmia. 3. Normal blood pressure and heart rate response. 4. Sestamibi/sestamibi perfusion scan pending; see separate report. Electronically Signed On 10-07-2024 23:12:03 PARATRANSIT OPERATOR by Dustin Mcdaniel M.D. [id number]
[2024-09-28] MEDS: pantoprazole DR 40 mg Tablet PO (12:47)
[2024-09-28] MEDS: enoxaparin 40 mg/0.4 mL Syringe SUBCUT (12:47)
[2024-09-28 12:53] LABS: Troponin 5 6HR 14.22 ng/L (0-15); Troponin 5 6HR Delta 3.22 ng/L (0-12)
[2024-09-28 13:10] LABS: Iron 61 ug/dL (59-158); Percent Saturation 21.1 % (20-50); Thyroid Stimulating Hormone 0.41 uIU/mL (0.27-4.20); Total Iron Binding Capacity 288 mcg/dl; Unsaturated Iron Binding 227 ug/dL (112-347)
[2024-09-28 13:13] LABS: Vitamin B12 354 pg/mL (232-1245)
[2024-09-28 13:40] LABS: Procalcitonin 0.08 ng/mL (0-0.5)
--- NOTE | 2024-09-28 14:29 | PM.HP ---
Providers/Chief Complaint Admitting Physician: Gerardo Ocasio MD Primary Care Provider: Kwaku Montero MD Chief Complaint: CP History of Present Illness Cheo Flores is a 69 year old male with past medical history of hypertension, CAD post PCI in 2020, type 2 diabetes mellitus presents to the ER today because of retrosternal chest pain which woke him up last night radiating to left arm being relieved by nitro. 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 Patient denies any changes in his medications. Currently patient is chest pain-free. Review of Systems General: Reports: 10 or more systems reviewed and unremarkable except in HPI and below Const: Denies: fever(s), chills, body aches, change in appetite, change in weight, malaise, night sweats, diaphoresis, change in sleep pattern, daytime sleepiness or snoring Eyes: Denies: change in vision, blurry vision, photophobia, eye discomfort or eye discharge ENMT: Denies: throat pain, enlarged tonsils, hoarseness, mouth pain, oral sores, dry mouth, tinnitus, nasal congestion or post nasal drip Card: Denies: chest pain, palpitations, irregular heart rhythm, edema, swelling of feet/ankles, lightheadedness, syncope, pre-syncope, dyspnea on exertion, orthopnea, leg pain with exertion or acrocyanosis Resp: Denies: dyspnea, productive cough, non-productive cough, wheezing, stridor, pain on inspiration, change in phlegm color, hemoptysis or chest congestion GI: Denies: abdominal pain, nausea, vomiting, hematemesis, coffee ground emesis, dysphagia, heartburn, diarrhea, constipation, bloating, GI cramping, change in bowel habits, pain on defecation, hematochezia or melena : Denies: flank pain, difficulty urinating, dysuria, urinary frequency, urinary urgency, urinary hesitancy, urinary dribbling, difficulty starting urination, change in urine stream, nocturia or hematuria Musc: Denies: neck pain, back pain, extremity pain, joint pain, joint swelling, joint redness, joint stiffness or limited range of motion Neuro: Denies: headache(s), numbness in extremities, weakness in extremities, sensory changes, lack of coordination, difficulty walking, frequent falls, dizziness, vertigo, confusion, Slurred speech present, difficulty communicating thoughts or seizure-like activity Psych: Denies: anxiety, depression, mood swings, panic attacks, hopelessness or irritability Endo: Denies: polyuria, polydipsia, tired all the time, cold intolerance, excessive sweating, flushing or heat intolerance Benson/Lymph: Denies: easy bruising or easy bleeding All/Imm: Denies: tongue swelling, facial swelling or acute wheezing Medications/Allergies Home Medications Medication Instructions Recorded Confirmed Last Taken Type aspirin 81 mg chewable tablet 81 mg PO DAILY #30 tabs 05/30/21 09/28/24 06/28/21 06:00 Rx metformin 1,000 mg tablet 1,000 mg PO BID 05/30/21 09/28/24 06/29/21 06:00 History clopidogrel 75 mg tablet 75 mg PO DAILY #90 tabs 08/01/22 09/28/24 Unknown Rx amlodipine 5 mg tablet 5 mg PO DAILY #90 tabs 10/05/22 09/28/24 Unknown Rx nitroglycerin 0.4 mg sublingual 0.4 mg sublingual Q5M PRN chest 03/07/23 09/28/24 Unknown Rx tablet pain #25 tabs atorvastatin 40 mg tablet 40 mg PO DAILY 09/28/24 09/28/24 Unknown History glipizide 10 mg tablet 10 mg PO DAILY 09/28/24 09/28/24 Unknown History Allergies Allergy/AdvReac Type Severity Reaction Status Date / Time No Known Allergies Allergy Verified 02/24/22 09:05 PFSH Acute PFSH: Medical History (Updated 09/28/24 @ 14:32 by Gerardo Ocasio MD) Hemorrhoid JUDIT (obstructive sleep apnea) Coronary artery disease GERD (gastroesophageal reflux disease) Diabetes mellitus HTN (hypertension) Surgical History Presence of stent in LAD coronary artery Family History Father Stroke Mother Stroke Social History Smoking and tobacco/nicotine status: former use of tobacco/nicotine Quit status (tobacco/nicotine): has quit using Year quit tobacco: 1989 Former quit date comment: cigars occ Alcohol intake: former Substance/Drug Use: never Vitals/I&O/Wt Last Vital Signs Temp 98.4 F 09/28/24 12:19 Pulse 91 09/28/24 14:00 Resp 18 09/28/24 12:19 BP 147/87 09/28/24 12:19 Pulse Ox 97 09/28/24 12:19 O2 Del Method Room Air 09/28/24 12:19 09/27/24 09/28/24 09/28/24 22:59 06:59 14:59 Intake Total 120 / 120 Balance 120 / 120 Weight last 48 hrs Weight 97.976 kg Weight 104.326 kg Physical Exam Narrative: General: No acute distress, AO x3 HEENT: PERRLA, pupils bilaterally equal and reactive Chest: Normal vesicular breath sounds, no added sounds, equal good air entry bilaterally CVS: S1-S2 regular, no murmurs, no tachycardia, no gallops, no rubs Abdomen: Soft, nontender, no organomegaly, bowel sounds present Neuro: No focal deficits, no facial deformity, AO x3, power 5/5 in all limbs Data 09/28/24 06:09 09/28/24 06:09 A&P Assessment and plan (1) Coronary artery disease: Continue with home dose of aspirin, Plavix, statin. Monitor heart rate. If needed will start on metoprolol 25 mg twice daily. Troponin cycle negative. Appreciate recent echocardiogram. N.p.o. after midnight, and Lexiscan stress test in AM. Depending on the results we will consult cardiology. (2) Chest pain with moderate risk for cardiac etiology: (3) HTN (hypertension): Goal blood pressure less than 140/90 mmHg. Continue with home dose of amlodipine. Add metoprolol as above. Qualifiers: Hypertension type: essential hypertension Qualified Code(s): I10 - Essential (primary) hypertension (4) Diabetes mellitus: Hold off on OHA's. Check A1c. Insulin sliding scale. Check lipid panel. Qualifiers: Diabetes mellitus type: type 2 Diabetes mellitus jail insulin use: without jail use Diabetes mellitus complication status: without complication Qualified Code(s): E11.9 - Type 2 diabetes mellitus without complications (5) JUDIT (obstructive sleep apnea): Plan Full code Carb consistent cardiac diet, n.p.o. after midnight Lovenox for DVT prophylaxis Protonix OPD prophylaxis. Attestations Medical Necessity Statement*: Admit under observation for management of unstable angina in a patient with history of CAD post PCI, hypertension, hyperlipidemia, type 2 diabetes mellitus requiring further workup Diagnoses Coronary artery disease I25.10 Chest pain with moderate risk for cardiac etiology R07.9 Essential hypertension I10 Hypertension type: essential hypertension Type 2 diabetes mellitus without complication, without long-term current use of insulin E11.9 Diabetes mellitus type: type 2 Diabetes mellitus jail insulin use: without termite control representative use Diabetes mellitus complication status: without complication JUDIT (obstructive sleep apnea) G47.33
[2024-09-28 16:41] LABS: Glucose Point of Care 268 mg/dL (70-110)
[2024-09-28 17:00] LABS: Bilirubin Urine Negative (Negative); Blood Urine Negative (Negative); Glucose Urine UA 3+ (Normal); Ketones Urine Trace (Negative); Leukocyte Esterase Urine Negative (Negative); Nitrate Urine Negative (Negative); Protein Urine Negative (Negative); Urine Appearance Clear (CLEAR); Urine Color Yellow (Yellow); pH Urine 5.5 (5-7)
[2024-09-28 17:04] LABS: Add Urine Microscopic? YES; Bacteria Urine None Seen /hpf; RBC Urine 0-2 /hpf (0-2); Squamous Epithelial Cell Urine 0-5 /hpf (0-5); WBC Urine 0-5 /hpf (0-5)
[2024-09-28 17:05] LABS: Specific Gravity, Urine 1.034 (1.005-1.030)
[2024-09-28] MEDS: insulin lispro 100 unit/1 mL SUBCUT ×2 (17:13→22:13)
--- NOTE | 2024-09-28 19:06 | PC.NURSE ---
Mr. Flores just had some visitors. They stated they feel like he had some memory loss from this morning. Dr. Ocasio was just notified. Patient is alert and oriented x4 at this time.
[2024-09-28 20:13] LABS: Glucose Point of Care 287 mg/dL (70-110)
[2024-09-29] VITALS (7 sets, daily range): BP systolic 127–173; BP diastolic 73–98; PULSE 62–102; RESP 16–18; TEMP 36.4–37.1; O2SAT 96–97
[2024-09-29] MEDS: acetaminophen 325 mg Tablet 650 MG PO (03:41)
[2024-09-29 05:14] LABS: Basophils % 0.6 %; Eosinophils # 0.2 10^3/uL (0.0-0.8); Eosinophils % 4.3 %; Hematocrit 42.4 % (37-53); Lymphocytes % 19.5 %; Mean Corpuscular HGB Conc 32.3 g/dL (30-55); Mean Corpuscular Hemoglobin 29.3 pg (27-33); Mean Corpuscular Volume 90.8 fl (82-101); Monocytes # 0.4 10^3/uL (0.2-0.9); Monocytes % 7.6 %; Neutrophils # 3.28 10^3/uL (1.8-7.7); Neutrophils % 67.6 %; Nucleated Red Blood Cells % 0 %; Platelet Count 149 10^3/cmm (157-399); Red Blood Count 4.67 10^6/uL (3.85-5.65); Red Cell Distribution Width 12.8 % (12.1-15.1); White Blood Count 4.86 10^3/uL (3.29-11.43)
[2024-09-29 05:34] LABS: Estmated Average Glucose 209; Hemoglobin A1C 8.9 % (4.0-6.0)
[2024-09-29 05:37] LABS: Alanine Aminotransferase 23 U/L (0-41); Albumin Level 3.6 g/dL (3.5-5.2); Alkaline Phosphatase 127 U/L (40-130); Anion Gap 12.4 (5-19); Aspartate Amino Transferase 15 U/L (0-40); Blood Urea Nitrogen 15 mg/dL (8-23); Calcium 9.2 mg/dL (8.5-10.5); Carbon Dioxide 23 mmol/L (22-29); Chloride 104 mmol/L (98-107); Creatinine Clr Calc Pharmacy 104.6465; Globulin 2.8 g/dL (1.3-4.6); Glomerular Filtration Rate 96.1 mL/min (90-130); Glucose 201 mg/dL (65-115); Osmolality Calculated 287 mOsm/kg (285-295); Phosphorus 3.5 mg/dL (2.5-4.5); Potassium 4.4 mmol/L (3.5-5.1); Sodium 135 mmol/L (136-145); Total Bilirubin 0.6 mg/dL (0.15-1.2); Total Protein 6.4 g/dL (6.6-8.7)
[2024-09-29 05:43] LABS: Chol HDL Ratio 3.97 mg/dL (1.0-5.00); Cholesterol 123 mg/dL (0-200); HDL Cholesterol 31 mg/dL (60-100); LDL Cholesterol Calculated 66 mg/dL (50-129); LDL HDL Ratio 2.13 RATIO (0.00-3.22); Procalcitonin 0.08 ng/mL (0-0.5); Triglycerides 130 mg/dL (0-150)
[2024-09-29 05:52] LABS: Folate Level 9.9 ng/mL (4.5-32.2)
[2024-09-29 06:17] LABS: Glucose Point of Care 207 mg/dL (70-110)
[2024-09-29] MEDS: regadenoson 0.4 Mg/5 ml Syringe IVP (07:19)
[2024-09-29] MEDS: aspirin 81 mg Chew Tablet PO (09:37)
[2024-09-29] MEDS: atorvastatin 40 mg Tablet PO (09:37)
[2024-09-29] MEDS: pantoprazole DR 40 mg Tablet PO (09:38)
[2024-09-29] MEDS: clopidogrel 75 mg Tablet PO (09:38)
[2024-09-29] MEDS: amlodipine 5 mg Tablet PO (09:38)
--- NOTE | 2024-09-29 10:36 | PC.CHAP ---
Pastoral Care Encounter/Spiritual Assessment Type of Contact [] Declined fingerprint expert visit [] Patient/Family/Request visit [] Outpatient visit [] Follow-up visit [] Physician referral [] Code/Alert [x] Routine visit [] Staff referral [] Actively dying [] Patient sleeping [] Family support [] [] Out of room [] Palliative care [] [] Receiving care in room [] Pre-surgical visit [] Trauma [] Long length of stay [] ICU visit [] Other: Relational/Emotional Strength [] Patient feels connected with others/family/visitors/staff [] Distress [] Loneliness/isolation [] Abandonment Spirituality of Patient [x] Person of Manuela [] Attends Hinduism of their Manuela [x] Believes in Prayer [] Reads Bible or Christian materials [] There are Spiritual issues to be addressed Complaint Evaluation Officer Interventions [x] Prayer [x] Active listening [] Non-anxious presence [] Spiritual/emotional support [] Crisis/trauma care [] Spiritual counseling [] Bereavement support [] Provided bereavement packet [x] Provided Bible/devotional materials [] Provided toy/stuffed animal, coloring book to patient or family member [] Provided Communion [] Anointing/[place] [] Salvation [x] Completed spiritual assessment [] Other: Impact on Illness or Injury [] Angry [] Fearful [] Anxious [] Often cries [] Exhaustion [] Unable to work [] Unable to attend pentecostalism [] Unable to walk/stand [] Unable to read [] Unable to drive [] Unable to eat/drink [] Unable to sleep [] Unable to be with family [] Patient intubated [] Other: Summary Time spent with patient 5 min
--- NOTE | 2024-09-29 10:44 | PM.DCS ---
Discharge Providers Date of Admission: 09/28/24 07:58 Date of Discharge: September 29, 2024 Attending Provider at Admission: Gerardo Ocasio MD Attending Provider at Discharge: Mahamed Vázquez Primary Care Provider: Kwaku Montero MD Diagnoses at Discharge Discharge Diagnosis (1) Coronary artery disease: Status: Acute (2) Chest pain with moderate risk for cardiac etiology: Status: Acute (3) HTN (hypertension): Status: Acute Qualifiers: Hypertension type: essential hypertension Qualified Code(s): I10 - Essential (primary) hypertension (4) Diabetes mellitus: Status: Acute Qualifiers: Diabetes mellitus type: type 2 Diabetes mellitus senior living insulin use: without exterminator use Diabetes mellitus complication status: without complication Qualified Code(s): E11.9 - Type 2 diabetes mellitus without complications (5) JUDIT (obstructive sleep apnea): Status: Acute Reason for Visit Reason for Visit: CP Brief History: Cheo Flores is a 69 year old male with past medical history of hypertension, CAD post PCI in 2020, type 2 diabetes mellitus presents to the ER today because of retrosternal chest pain which woke him up last night radiating to left arm being relieved by nitro. 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 Patient denies any changes in his medications. Currently patient is chest pain-free. Hospital Course Hospital Course He did well overnight, has remained free of chest pain or pressure, however, has had blood pressure elevations including as high as 173/98 this morning. A1c was checked as well and was elevated at 8.9. He states he has been on the same dose of metformin and glipizide for several years. He underwent additional assessment with stress test this morning which showed attenuation artifact and septal wall, without evidence of ischemia with normal LV systolic function. He is currently free of chest pain or pressure. He is otherwise maintaining oxygenation on room air without any tachycardia. Has ambulated in hospital without issues. No lower extremity edema. He knows to seek medical attention in case of any worsening or new concerning symptoms, understands small chance of false negative results on stress testing, but otherwise is doing well and is comfortable returning home to follow-up with primary provider to further reassess as well as optimize his chronic conditions. To help improve blood glucose control metformin dose will be increased to 1250 mg twice daily. He will continue glipizide. In case of further suboptimal control and/or intolerance of metformin, consider addition of diabetic medication, possibly Farxiga. To assist in blood pressure management he is continued on amlodipine, and losartan 25 mg daily is added. Physical Exam Narrative: Accompanied by family. Const: COMMON NORMALS: patient oriented x3 and alert GENERAL APPEARANCE: cooperative ORIENTATION/CONSCIOUSNESS: Yes awake HENMT: COMMON NORMALS: oropharynx normal Neck/C-Spine: COMMON NORMALS: no JVD Resp: COMMON NORMALS: normal respiratory effort and clear to auscultation bilaterally AUSCULTATION: clear to auscultation bilaterally Cardio: COMMON NORMALS: no JVD, regular rhythm, S1 normal heart sound present, S2 normal heart sound present and No murmurs present (Cardio) RHYTHM: regular rhythm HEART SOUNDS: S1 normal heart sound present and S2 normal heart sound present GI: COMMON NORMALS: Normal to inspection, nondistended, normoactive bowel sounds present, Soft to palpation and non-tender PALPATION: Yes Soft to palpation Extremity: COMMON NORMALS: no joint enlargement and no pedal edema Neuro: COMMON NORMALS: patient oriented x3 and moves all extremities SENSORIUM/ORIENTATION: Yes alert Skin: COMMON NORMALS: no rashes or lesions noted GENERAL SKIN EXAM: no rashes or lesions noted Discharge Data Studies Completed and Pending Completed Studies During Hospitalization Category Date Time Status Sestamibi Stress Test Request Routine Exams 09/28/24 12:26 Draft XR chest 1V portable [id number] Stat Exams 09/28/24 05:53 Completed NM miguel angel perf SPECT r/s* [id number] Routine Nuc Med 09/29/24 12:26 Completed Radiology Impressions Chest X-Ray 09/28/24 05:53 IMPRESSION: No acute cardiopulmonary disease. Laboratory Results WBC 4.86 10^3/uL (3.29-11.43) 09/29/24 05:05 RBC 4.67 10^6/uL (3.85-5.65) 09/29/24 05:05 Hgb 13.70 g/dL (11.27-16.99) 09/29/24 05:05 Hct 42.4 % (37-53) 09/29/24 05:05 MCV 90.8 fl (82-101) 09/29/24 05:05 MCH 29.3 pg (27-33) 09/29/24 05:05 MCHC 32.3 g/dL (30-55) 09/29/24 05:05 RDW 12.8 % (12.1-15.1) 09/29/24 05:05 Plt Count 149 10^3/cmm (157-399) L 09/29/24 05:05 MPV 11.0 fL (7.4-10.4) H 09/29/24 05:05 Neut % (Auto) 67.6 % 09/29/24 05:05 Lymph % (Auto) 19.5 % 09/29/24 05:05 Morrill % (Auto) 7.6 % 09/29/24 05:05 Eos % (Auto) 4.3 % 09/29/24 05:05 Baso % (Auto) 0.6 % 09/29/24 05:05 Neut # (Auto) 3.28 10^3/uL (1.8-7.7) 09/29/24 05:05 Lymph # (Auto) 1.0 10^3/uL (0.8-4.8) 09/29/24 05:05 Morrill # (Auto) 0.4 10^3/uL (0.2-0.9) 09/29/24 05:05 Eos # (Auto) 0.2 10^3/uL (0.0-0.8) 09/29/24 05:05 Baso # (Auto) 0.0 10^3/uL (0.0-0.1) 09/29/24 05:05 Nucleated RBC % (auto) 0 % 09/29/24 05:05 Nucleated RBCs # 0.0 /100WBC 09/29/24 05:05 Sodium 135 mmol/L (136-145) L 09/29/24 05:05 Potassium 4.4 mmol/L (3.5-5.1) 09/29/24 05:05 Chloride 104 mmol/L (98-107) 09/29/24 05:05 Carbon Dioxide 23 mmol/L (22-29) 09/29/24 05:05 Anion Gap 12.4 (5-19) 09/29/24 05:05 BUN 15 mg/dL (8-23) 09/29/24 05:05 Creatinine 0.8 mg/dL (0.7-1.2) 09/29/24 05:05 GFR Calculation 96.1 mL/min (90-130) 09/29/24 05:05 Glucose 201 mg/dL (65-115) H 09/29/24 05:05 POC Glucose 207 mg/dL (70-110) H 09/29/24 06:14 Estimat Average Glucose 209 09/29/24 05:05 Hemoglobin A1c 8.9 % (4.0-6.0) H 09/29/24 05:05 Calculated Osmolality 287 mOsm/kg (285-295) 09/29/24 05:05 Calcium 9.2 mg/dL (8.5-10.5) 09/29/24 05:05 Phosphorus 3.5 mg/dL (2.5-4.5) 09/29/24 05:05 Magnesium 2.0 mg/dL (1.7-2.3) 09/29/24 05:05 Iron 61 ug/dL (59-158) 09/28/24 12:17 TIBC 288 mcg/dl 09/28/24 12:17 % Saturation 21.1 % (20-50) 09/28/24 12:17 Unsat Iron Binding 227 ug/dL (112-347) 09/28/24 12:17 Total Bilirubin 0.6 mg/dL (0.15-1.2) 09/29/24 05:05 AST 15 U/L (0-40) 09/29/24 05:05 ALT 23 U/L (0-41) 09/29/24 05:05 Alkaline Phosphatase 127 U/L (40-130) 09/29/24 05:05 Troponin T Baseline 11 ng/L (0-15) 09/28/24 06:09 Troponin T 120 Minute 12.79 ng/L (0-15) 09/28/24 08:04 Delta Troponin T 1.79 ABS# (0-10) 09/28/24 08:04 Troponin T Hi Sens 6Hr 14.22 ng/L (0-15) 09/28/24 12:17 Troponin T Hi Sens 6Hr Delta 3.22 ng/L (0-12) 09/28/24 12:17 Total Protein 6.4 g/dL (6.6-8.7) L 09/29/24 05:05 Albumin 3.6 g/dL (3.5-5.2) 09/29/24 05:05 Globulin 2.8 g/dL (1.3-4.6) 09/29/24 05:05 Triglycerides 130 mg/dL (0-150) 09/29/24 05:05 Cholesterol 123 mg/dL (0-200) 09/29/24 05:05 LDL Cholesterol, Calc 66 mg/dL (50-129) 09/29/24 05:05 HDL Cholesterol 31 mg/dL (60-100) L 09/29/24 05:05 LDL/HDL Ratio 2.13 RATIO (0.00-3.22) 09/29/24 05:05 Cholesterol/HDL Ratio 3.97 mg/dL (1.0-5.00) 09/29/24 05:05 Vitamin B12 354 pg/mL (232-1245) 09/28/24 12:17 Folate 9.9 ng/mL (4.5-32.2) 09/29/24 05:05 Procalcitonin 0.08 ng/mL (0-0.5) 09/29/24 05:05 TSH 0.41 uIU/mL (0.27-4.20) 09/28/24 12:17 Urine Color Yellow (Yellow) 09/28/24 16:50 Urine Appearance Clear (CLEAR) 09/28/24 16:50 Urine pH 5.5 (5-7) 09/28/24 16:50 Ur Specific Walton 1.034 (1.005-1.030) H 09/28/24 16:50 Urine Protein Negative (Negative) 09/28/24 16:50 Urine Glucose (UA) 3+ (Normal) H 09/28/24 16:50 Urine Ketones Trace (Negative) 09/28/24 16:50 Urine Blood Negative (Negative) 09/28/24 16:50 Urine Nitrate Negative (Negative) 09/28/24 16:50 Urine Bilirubin Negative (Negative) 09/28/24 16:50 Urine Urobilinogen 1.0 mg/dL (Negative) 09/28/24 16:50 Ur Leukocyte Esterase Negative (Negative) 09/28/24 16:50 Urine RBC 0-2 /hpf (0-2) 09/28/24 16:50 Urine WBC 0-5 /hpf (0-5) 09/28/24 16:50 Ur Squamous Epith Cells 0-5 /hpf (0-5) 09/28/24 16:50 Amorphous Sediment Not Reportable 09/28/24 16:50 Urine Bacteria None seen /hpf (NONE) 09/28/24 16:50 Hyaline Casts 0.40 /lpf 09/28/24 16:50 Vitals Last Vital Signs Temp 97.7 F 09/29/24 09:45 Pulse 62 09/29/24 09:45 Resp 16 09/29/24 09:45 BP 173/98 09/29/24 09:45 Pulse Ox 97 09/29/24 09:45 O2 Del Method Room Air 09/29/24 09:45 Discharge Plan Discharge Patient Disposition: Home Condition: Stable Prescriptions: New metformin 500 mg tablet 250 mg PO BID Qty: 90 0RF Rx Instructions: with 1000mg for total 1250mg BID losartan 25 mg tablet 25 mg PO DAILY Qty: 90 0RF Continued metformin 1,000 mg tablet 1,000 mg PO BID Hold Instructions: normal blood sugar aspirin 81 mg tablet,chewable 81 mg PO DAILY Qty: 30 6RF clopidogrel 75 mg tablet 75 mg PO DAILY Qty: 90 3RF amlodipine 5 mg tablet 5 mg PO DAILY Qty: 90 3RF nitroglycerin 0.4 mg tablet, sublingual 0.4 mg sublingual Q5M PRN (Reason: chest pain) Qty: 25 6RF Rx Instructions: do not exceed 3 doses per episode atorvastatin 40 mg tablet 40 mg PO DAILY glipizide 10 mg tablet 10 mg PO DAILY Discharge Orders: Discharge Order (Routine); Ordered 09/29/24 Ordered By: Mahamed Vázquez Referrals: Kwaku Montero MD [Primary Care Provider] - 4-7 days Discharge Diet: Cardiac and Diabetic Discharge Activity: Increase activity as tolerated Patient Instructions: Diabetes and Diet, Chronic Hypertension (GEN), Losartan (By mouth), Prevent Cardiovascular Disease (GEN) Activity Restrictions/Additional Instructions: Please continue with consistent carbohydrate diet. Monitor blood glucose 2-3 times daily. Target blood glucose 100-150 mg/dL. Your metformin dose is increased up to 1250 mg twice daily. In case you experience difficulties tolerating this dose due to diarrhea or other gastrointestinal symptoms, please return to your previous dose and discuss with your primary provider regarding an additional diabetes medication. Your A1c was 8.9. Follow-up with your prime provider to continue to optimize A1c with target of 8. Continue follow-up for assessment for any diabetes related complications. Please continue to monitor blood pressure at least twice daily to continue to optimize blood pressure control. Target blood pressure 120/80. Low-dose losartan 25 mg daily is added to help with blood pressure control. Return to the hospital as discussed in case of any worsening or new concerning symptoms. Discharge Attestations Time Spent in Discharge Care*: greater than 30 min Quality Metrics Clinical Quality Measures [ No reported AMI, CVA or VTE this stay] Coding Level of Care Code 67840 Total time (in minutes) for Discharge: 45 Diagnoses Coronary artery disease I25.10 Chest pain with moderate risk for cardiac etiology R07.9 Essential hypertension I10 Hypertension type: essential hypertension Type 2 diabetes mellitus without complication, without long-term current use of insulin E11.9 Diabetes mellitus type: type 2 Diabetes mellitus senior living insulin use: without senior living use Diabetes mellitus complication status: without complication JUDIT (obstructive sleep apnea) G47.33
[2024-09-29 11:41] LABS: Glucose Point of Care 295 mg/dL (70-110)
--- NOTE | 2024-09-29 12:26 | NMCV_ITS ---
NM miguel angel perf SPECT r/s* [id number] Cheo Flores Age: 69 Gender: M : 1955 Exam Date: 09/29/2024 12:26 Ordering Phys: Gerardo Ocasio MD Technologist: ROSA Whitt Exam Location: [facility] Indications: cp STRESS TEST Please see separate stress test report in [facility] for full findings IMAGE PROTOCOL Rest/Stress 1 Lexiscan Day Radiopharmaceutical Dose (mCi) Administration Site Administered by Rest: Tc-99m 11 IV Suzan Coatese, MANNEQUIN MOUNTER Sestamibi Stress:Tc-99m 32 IV Suzan Marci, MANNEQUIN MOUNTER Sestamibi Rest: 29-Sep-2024 60 Discovery 630 Stress: 29-Sep-2024 30 Discovery 630 0.4mg Lexiscan. Images obtained in supine and prone position. SPECT RESULTS Technical Quality: Good Raw Data Analysis: Normal Image Corrections: No attenuation or motion correction applied Summed Stress Score: 0 Summed Rest Score: 7 Summed Difference Score: 0 PERFUSION FINDINGS There is small area of reduced radiotracer uptake in apical septal and mid septal elizondo. This improves on stress imaging. This is consistent with attenuation artifact. No evidence of ischemia seen. FUNCTIONAL RESULTS (calculated via Gated SPECT) Stress Image LV EF (%): 63 Stress EDV (mL):101 TID: 1.04 Stress ESV (mL):37 FUNCTIONAL FINDINGS: There is normal left ventricular systolic function. IMPRESSIONS 1. Attenuation artifact seen in septal wall. No evidence of ischemia 2. LV systolic function is normal Dustin Mcdaniel MD (Electronically Signed) Final Date: 29 September 2024 09:02 S
== END 2024-09-29 12:01 | disposition home or self-care (01) ==
LOC: ER 08:03 → MEDSURG 09:22
PROVIDERS: Emergency Medicine; Admitting Provider Student in an Organized Health Care Education/Training Program; Emergency Provider Emergency Medicine; PCP Family Medicine; Visit Provider Internal Medicine
DX: R07.9 Chest pain, unspecified (principal); I25.10 Atherosclerotic heart disease of native coronary artery without angina pectoris; I10 Essential (primary) hypertension; E11.9 Type 2 diabetes mellitus without complications; G47.33 Obstructive sleep apnea (adult) (pediatric); Z79.82 Long term (current) use of aspirin; Z79.84 Long term (current) use of oral hypoglycemic drugs; K21.9 Gastro-esophageal reflux disease without esophagitis; Z87.891 Personal history of nicotine dependence
CPT/HCPCS: 36415; 36416; 71045; 78452; 80053; 80061; 81001; 82607; 82746; 82962; 83036; 83540; 83550; 83735; 84100; 84145; 84443; 84484; 85025; 93005; 93017; 94664; 96372; 96375; 99285; A9500; G0378; J1650; J1815; J2785